=== PATIENT | female | born 1960 | race Two or more races ===

== ENCOUNTER 2017-05-12 15:54 | Outpatient (CLI) | payer OTHER | END 2017-05-12 17:07 | disposition home or self-care (01) | LOC: MAMO-SONO 15:54 | DX: N60.19 Diffuse cystic mastopathy of unspecified breast (principal); N64.4 Mastodynia; Z13.21 Encounter for screening for nutritional disorder; Z12.39 Encounter for other screening for malignant neoplasm of breast; Z00.01 Encounter for general adult medical examination with abnormal findings ==

== ENCOUNTER → 2017-05-12 | Outpatient (CLI) | payer OTHER | END | disposition home or self-care (01) | LOC: NUCLEAR 14:00 | DX: N95.1 Menopausal and female climacteric states (principal); M85.80 Other specified disorders of bone density and structure, unspecified site; M80.00XA Age-related osteoporosis with current pathological fracture, unspecified site, initial encounter for fracture; M81.0 Age-related osteoporosis without current pathological fracture ==

== ENCOUNTER 2017-08-10 08:22 | Outpatient (CLI) | payer OTHER | END 2017-08-10 08:32 | disposition home or self-care (01) | LOC: MAMO-SONO 08:22 | DX: N63.20 Unspecified lump in the left breast, unspecified quadrant (principal) ==

== ENCOUNTER 2018-07-07 15:08 | Outpatient (CLI) | payer OTHER | END 2018-07-07 15:41 | disposition home or self-care (01) | LOC: MAMO-SONO 15:08 | DX: Z12.31 Encounter for screening mammogram for malignant neoplasm of breast (principal); Z80.3 Family history of malignant neoplasm of breast; Z78.0 Asymptomatic menopausal state ==

== ENCOUNTER 2021-08-13 13:04 | Outpatient (CLI) | payer OTHER | END 2021-08-13 13:05 | disposition home or self-care (01) | LOC: NUCLEAR 13:04 | PROVIDERS: ATTEND Obstetrics & Gynecology Gynecology | DX: M81.0 Age-related osteoporosis without current pathological fracture (principal); M85.80 Other specified disorders of bone density and structure, unspecified site ==

== ENCOUNTER 2021-08-13 13:59 | Outpatient (CLI) | payer OTHER | END 2021-08-13 14:21 | disposition home or self-care (01) | LOC: MAMO-SONO 13:59 | PROVIDERS: ATTEND Obstetrics & Gynecology Gynecology | DX: Z12.31 Encounter for screening mammogram for malignant neoplasm of breast (principal); T85.49XA Other mechanical complication of breast prosthesis and implant, initial encounter; Z85.3 Personal history of malignant neoplasm of breast; N60.19 Diffuse cystic mastopathy of unspecified breast; N64.4 Mastodynia; R92.2 Inconclusive mammogram; N63.0 Unspecified lump in unspecified breast ==

== ENCOUNTER 2022-01-02 08:23 | Outpatient (CLI) | payer OTHER | END 2022-01-02 09:02 | disposition home or self-care (01) | LOC: MRI 08:23 | DX: M79.672 Pain in left foot (principal) | CPT/HCPCS: 73722 ==

== ENCOUNTER 2023-05-27 13:55 | Outpatient (CLI) | payer OTHER | END 2023-05-27 14:12 | disposition home or self-care (01) | LOC: MAMO-SONO 13:55 | DX: R31.29 Other microscopic hematuria (principal); Z12.31 Encounter for screening mammogram for malignant neoplasm of breast; N60.19 Diffuse cystic mastopathy of unspecified breast; N64.4 Mastodynia; R92.2 Inconclusive mammogram; N63.0 Unspecified lump in unspecified breast ==

== ENCOUNTER 2023-05-28 09:15 | Outpatient (CLI) | payer OTHER | END 2023-05-28 09:16 | disposition home or self-care (01) | LOC: NUCLEAR 09:15 | PROVIDERS: ATTEND Obstetrics & Gynecology Gynecology | DX: S80.11XA Contusion of right lower leg, initial encounter (principal) ==

== ENCOUNTER 2023-05-29 09:00 | Outpatient (CLI) | payer OTHER | END 2023-05-29 09:01 | disposition home or self-care (01) | LOC: NUCLEAR 09:00 | DX: S80.11XA Contusion of right lower leg, initial encounter (principal) ==

== ENCOUNTER → 2024-01-11 13:34 | Outpatient (CLI) | payer OTHER | END | disposition home or self-care (01) | LOC: NUCLEAR 12-21 13:00 | PROVIDERS: ATTEND Obstetrics & Gynecology Gynecology | DX: M81.0 Age-related osteoporosis without current pathological fracture (principal); M85.80 Other specified disorders of bone density and structure, unspecified site ==